=== PATIENT | female | born 1975 | race Caucasian/White ===

== ENCOUNTER 2019-04-09 09:08 | Emergency (ER) | payer OTHER ==
[2019-04-09 09:15] VITALS: BP 135/81; PULSE 115; TEMP 98; BMI 37.8
[2019-04-09] MEDS ORDERED: FLUCONAZOLE 150 MG TABLET PO ONE (09:35)
[2019-04-09] MEDS ORDERED: FLUCONAZOLE 100 MG TABLET (UD) ONE (09:39)
--- NOTE | 2019-04-09 10:07 | PDOC ---
History of Present Illness - General Chief Complaint: Vaginal Sxs Stated Complaint: VAGINAL SXS Time Seen by Provider: 04/09/19 09:23 History Source: Patient Exam Limitations: No Limitations Past History - Travel Traveled outside of the country in the last 30 days: No Close contact w/someone who was outside of country & ill: No - Past Medical History Allergies/Adverse Reactions: Allergies Allergy/AdvReac Type Severity Reaction Status Date / Time Penicillins Allergy Verified 04/09/19 09:14 Home Medications: Ambulatory Orders Ciprofloxacin [Cipro -] 250 mg PO BID #20 tablet 10/23/14 Methylergonovine Maleate [Methergine -] 0.2 mg PO TID #9 tablet 10/23/14 Pnv with Ca,No.71/Iron/FA [Prenaplus Tablet] 1 each PO DAILY 10/23/14 Fluconazole [Diflucan] 150 mg PO ONCE 1 Days #1 tablet 04/09/19 Nystatin/Triamcinolone Top Oin [Mycolog II -] 1 applic TP BID 7 Days #30 gm 05/28 Anemia: Yes COPD: No - Immunization History Immunization Up to Date: Yes - Psycho Social/Smoking Cessation Hx Smoking History: Never smoked Have you smoked in the past 12 months: No Substance Use Type: None Abd/GI Specific PMHX - Complaint Specific PMHX Colitis: No Review of Systems - Review of Systems Constitutional: No: Chills, Fever ABD/GI: No: Abdominal Distended, Abd. Pain w/ defecation, Diarrhea, Nausea, Vomiting, Abdominal cramping : Yes: Burning, Dysuria, Discharge. No: Frequency, Flank Pain, Hematuria, Pain, Urgency Musculoskeletal: No: Back Pain *Physical Exam - Vital Signs Last Vital Signs Temp Pulse Resp BP Pulse Ox 98 F 115 H 18 135/81 99 04/09/19 09:12 04/09/19 09:12 04/09/19 09:12 04/09/19 09:12 04/09/19 09:12 - Physical Exam General Appearance: Yes: Nourished Respiratory/Chest: positive: Lungs Clear, Normal Breath Sounds Cardiovascular: positive: Regular Rhythm, Regular Rate, S1, S2 Female Pelvic Exam: positive: discharge (white discharge), other (inflamed labia majoria, no CMT or adnexal tenderness). 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 Patient also noticed some white vaginal discharge. She denies any pelvic pain, fever, chills, or STI concerns. Examination consist of candidiasis, UA was negative Rx with Diflucan and triamcinolone sent to the pharmacy. vaginal culture sent Discharge - Discharge Information Problems reviewed: Yes Clinical Impression/Diagnosis: Yeast infection of the vagina Condition: Stable Disposition: HOME - Admission No - Additional Discharge Information Plan of Treatment: you was treated for yeast infection today. Your urine shows no infection for urinary tract infection Please take medication as prescribed in the pharmacy. 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
[2019-04-09 10:17] LABS: PH,URINE 6.5 (5.0-8.0); URINE APPEARANCE CLEAR; URINE BILIRUBIN NEGATIVE (NEGATIVE); URINE COLOR YELLOW; URINE GLUCOSE (UA) NEGATIVE (NEGATIVE); URINE KETONE NEGATIVE (NEGATIVE); URINE LEUK ESTERASE NEGATIVE (NEGATIVE); URINE NITRITE NEGATIVE (NEGATIVE); URINE PROTEIN NEGATIVE (NEGATIVE); URINE UROBILINOGEN 0.2 mg/dL (0.2-1.0)
== END 2019-04-09 11:00 | disposition home or self-care (01) ==
LOC: JER 09:08 → JERFT 09:08
DX: B37.3 Candidiasis of vulva and vagina (principal); Z88.0 Allergy status to penicillin; D64.9 Anemia, unspecified
CPT/HCPCS: 36415; 81003; 84703; 87086; 87491; 87591; 99282-25

== ENCOUNTER 2019-11-06 14:29 | Emergency (ER) | payer OTHER ==
[2019-11-06 14:35] VITALS: BP 125/71; PULSE 85; TEMP 98.3; BMI 36.6
--- NOTE | 2019-11-06 14:36 | PDOC ---
Rapid Medical Evaluation Time Seen by Provider: 11/06/19 14:33 Medical Evaluation: Allergies Allergy/AdvReac Type Severity Reaction Status Date / Time Penicillins Allergy Verified 11/06/19 14:32 11/06/19 14:33 CC: swelling near left jawline since yesterday, no other complaints including dry mouth . did mention llq tooth discomfort a few days ago Exam: mild to no edema noted to left mandible region, no tenderness, vss Plan: none Discharge Disposition - Diagnosis Facial swelling - Referrals - Patient Instructions - Post Discharge Activity
--- NOTE | 2019-11-06 16:05 | PDOC ---
History of Present Illness - General Chief Complaint: Head/Neck problem Stated Complaint: LT SIDE FACE SWOLLEN Time Seen by Provider: 11/06/19 14:33 History Source: Patient Exam Limitations: No Limitations - History of Present Illness Initial Comments: 11/06/19 15:30 44 yo female pmh GERD, iron deficiency anemia and pre-diabetes presents to the ED for 1 day of left face numbness. Pt states around 9 pm yesterday night she had numbness extending from her left jaw to the left side of her mouth and today noted intermittent numbness in the left upper ext. Pt denies similar symptoms in the past, PIKE, changes in vision, temporal pain, weakness on 1 side of her body, N/V/F/C, recent travel or sick contacts. Denies CP, SOB, abdominal pain, changes in bowel or bladder habits Past History - Medical History Allergies/Adverse Reactions: Allergies Allergy/AdvReac Type Severity Reaction Status Date / Time Penicillins Allergy Verified 11/06/19 14:32 Home Medications: Ambulatory Orders Ferrous Sulfate [Iron] 325 mg PO BID 11/06/19 Anemia: Yes COPD: No Diabetes: Yes - Immunization History Immunization Up to Date: Yes - Psycho-Social/Smoking History Smoking History: Never smoked Have you smoked in the past 12 months: No - Substance Abuse Hx (Audit-C & DAST Scrn) How often the patient has a drink containing alcohol: Never Score: In Men: 4 or > Positive; In Women: 3 or > Positive: 0 Screen Result (Pos requires Nsg. Audit-10AR): Negative In the last yr the pt used illegal drug/Rx for NonMed reason: No Score: Yes response is considered Positive: 0 Screen Result (Positive result requires Nsg. DAST-10): Negative Review of Systems - Review of Systems Constitutional: Yes: Symptoms Reported HEENTM: Yes: Symptoms Reported Respiratory: Yes: Symptoms reported Cardiac (ROS): Yes: Symptoms Reported ABD/GI: Yes: Symptoms Reported : Yes: Symptoms Reported Musculoskeletal: Yes: Symptoms Reported Integumentary: Yes: Symptoms Reported Neurological: Yes: Symptoms reported *Physical Exam - Vital Signs Last Vital Signs Temp Pulse Resp BP Pulse Ox 98.3 F 85 20 125/71 100 11/06/19 14:33 11/06/19 14:33 11/06/19 14:33 11/06/19 14:33 11/06/19 14:33 - Physical Exam General Appearance: Yes: Nourished, Appropriately Dressed. No: Apparent Distress HEENT: positive: EOMI, MYA, TMs Normal, Pharynx Normal Neck: positive: Supple. negative: Carotid bruit Respiratory/Chest: positive: Lungs Clear, Normal Breath Sounds. negative: Respiratory Distress, Accessory Muscle Use, Rapid RR, Decreased Breath Sounds, Crackles, Rales, Rhonchi, Stridor, Wheezing Cardiovascular: positive: Regular Rhythm, Regular Rate, S1, S2. negative: Edema, JVD, Murmur Vascular Pulses: Dorsalis-Pedis (R): 4+, Doralis-Pedis (L): 4+ Gastrointestinal/Abdominal: positive: Flat, Soft. negative: Pulsatile Mass, P rotuberent, Distended, Guarding, Rebound, Tenderness Musculoskeletal: negative: CVA Tenderness Extremity: positive: Normal Capillary Refill, Normal Inspection, Normal Range of Motion Integumentary: positive: Normal Color, Dry, Warm Neurologic: positive: workforce planning analyst II-XII NML intact, Fully Oriented, Alert, Normal Mood/Affect, Normal Response, Motor Strength 5/5. negative: Numbness, Sensory Deficit, Confused, Disoriented ED Treatment Course - LABORATORY CBC & Chemistry Diagram: 11/06/19 15:45 11/06/19 15:45 Medical Decision Making - Medical Decision Making 11/06/19 18:05 44 yo female pmh GERD, iron deficiency anemia and pre-diabetes presents to the ED for 1 day of left face numbness. Pt states around 9 pm yesterday night she had numbness extending from her left jaw to the left side of her mouth and today noted intermittent numbness in the left upper ext. Pt denies similar symptoms in the past, PIKE, changes in vision, temporal pain, weakness on 1 side of her body, N/V/F/C, recent travel or sick contacts. Denies CP, SOB, abdominal pain, changes in bowel or bladder habits vitals WNL Pt appears comfortable, NAD Can not illicit pain on palpation of tooth, states theres is no pain, only associated numbness in the face. No erythema, abscess or drainage, no signs of infection in the mouth Along with Numbness in the left face and left upper ext numbness, head CT done to r/o stroke Discussed case with Dr. Danielson, states if head CT is neg, pt is safe for DC home and can call the office to make an appointment for outpatient neuro follow up 11/06/19 18:[address] neg for acute intracranial pathology Pt feels well and states she will follow up with neurology, her PCP and her Dentist this week Pt safe for DC home Discharge - Discharge Information Problems reviewed: Yes Clinical Impression/Diagnosis: Facial swelling, Numbness Condition: Stable Disposition: HOME - Admission No - Follow up/Referral Referrals: Danny Tavares [Primary Care Provider] - Toy Danielson MD [Staff Physician] - - Patient Discharge Instructions Patient Printed Discharge Instructions: DI for Numbness/tingling Additional Instructions: Please see your Primary Doctor within the next 48 hours. Call the Neurologist, Dr. Danielson in the morning to schedule an appointment this week. Return to the ER for new or concerning symptoms. Thank you - Post Discharge Activity
[2019-11-06 16:25] LABS: BASO % 0.6 % (0-2.0); EOS % 0.5 % (0-4.5); HEMOGLOBIN 10.9 GM/dL (10.7-15.3); MCH 25.7 pg (25.7-33.7); MCHC 31.2 g/dl (32.0-36.0); MEAN CELL VOLUME 82.4 fl (80-96); MEAN PLT VOLUME 8.5 fl (7.5-11.1); MONO % 6.6 % (3.8-10.2); NEUT % 67.3 % (42.8-82.8); PLATELET COUNT 361 K/MM3 (134-434); RBC 4.25 M/mm3 (3.60-5.2); RDW 20.1 % (11.6-15.6); WHITE BLOOD COUNT 7.2 K/mm3 (4.0-10.0)
[2019-11-06 17:00] LABS: ALBUMIN 3.8 g/dl (3.4-5.0); BILIRUBIN,TOTAL 0.3 mg/dL (0.2-1); BLOOD UREA NITROGEN 9.9 mg/dL (7-18); CALCIUM 9.3 mg/dL (8.5-10.1); CREATININE 0.9 mg/dL (0.55-1.3); POTASSIUM 3.8 mmol/L (3.5-5.1); TOT PROT 6.8 g/dl (6.4-8.2)
--- NOTE | 2019-11-06 18:37 | PDOC ---
Attending Attestation - Resident Resident Name: BridgerNir pringle - ED Attending Attestation I have performed the following: I have examined & evaluated the patient, The case was reviewed & discussed with the resident, I agree w/resident's findings & plan, Exceptions are as noted - HPI HPI: 11/06/19 18:35 44 years old past medical history significant for anemia presents to the emergency department with left check intermittent numbness Does complain of some tooth discomfort but no evidence of active infection no fever chills chest pain shortness of breath nausea vomiting diarrhea symptoms are mild intermittent come and go no clear exacerbating or alleviating factors. 11/21/19 07:45 - Physicial Exam PE: 11/06/19 18:36 Vitals: Triage Vital signs reviewed General Appearance: No acute distress, well nourished well developed, Head: Atraumatic, Eyes: Pupils equal reactive round, extraocular movement intact Ears: TM's normal bilaterally; Neck: Supple; no Nucal rigidity Chest Wall: Nontender Cardiac: Regular rate and rhythym, no murmurs, no rubs, no gallops, Lungs: Clear to auscultation bilateral, good air movement bilaterally, Abdomen: Soft, non distended, normal bowel sounds, non tender to palpation Extremities: Full range of motion to all extremities, no cyanosis, clubbing, or edema Skin: Warm and dry, no rashes or lesions, no rash, no petechiae Neuro: AOX3; cranial Nerves 2-12 grossly intact, strength intact to all extremities, sensation intact to all extremities, gait normal Psych: Normal mood, normal affect - Medical Decision Making 11/06/19 18:36 44 years old with intermittent numbness to cheek and arm at this time no focal findings on examination however given symptomatology will CT labs observe and reassess CT with no acute pathology Case discussed with neurology will follow-up as an outpatient very low risk based on ABCD 2 risk stratification score Findings, need for follow-up and strict return instructions discussed with patient. NIH Stroke Scale - Last Known Well Date/Time & Onset Date Last Known Well: 11/03/19 - Initial Evaluation Level of consciousness: Alert Ask patient the month and their age: Answers both correctly Ask patient to open & close eyes; make fist and let go: Obeys both correctly Best gaze (horizontal eye movement): Normal Visual field testing: No visual field loss Facial paresis (Show teeth/raise eyebrows/close eyes tight): Normal symmetrical movement Motor Function: Left Arm: Normal Motor Function: Right Arm: Normal (extends arm 90 (or 45) degrees for 10 seconds without drift Motor Function: Left Leg: Normal (extends leg 30 degrees for 5 seconds without drift) Motor Function: Right Leg: Normal (extends leg 30 degrees for 5 seconds without drift) Limb Ataxia: No ataxia Sensory(Use pinprick test arms,legs,trunk,face/side to side): Normal Best language (Describe picture, name items, read sentences): No Aphasia Dysarthria (read several words): Normal articulation Extinction and Inattention: No abnormality - Total Score NIH Stroke Scale Score: 0 Discharge - Discharge Information Problems reviewed: Yes Clinical Impression/Diagnosis: Facial swelling, Numbness Condition: Stable Disposition: HOME - Follow up/Referral Referrals: Toy Danielson MD [Staff Physician] - Danny Tavares [Primary Care Provider] - - Patient Discharge Instructions Patient Printed Discharge Instructions: DI for Numbness/tingling Additional Instructions: Please see your Primary Doctor within the next 48 hours. Call the Neurologist, Dr. Danielson in the morning to schedule an appointment this week. Return to the ER for new or concerning symptoms. Thank you - Post Discharge Activity
== END 2019-11-06 18:46 | disposition home or self-care (01) ==
LOC: JER 14:29
DX: R22.0 Localized swelling, mass and lump, head (principal); R20.2 Paresthesia of skin
CPT/HCPCS: 36415; 70450-TC; 80053; 85025; 99284-25

== ENCOUNTER 2020-01-16 17:30 | Emergency (ER) | payer OTHER ==
[2020-01-16 17:45] VITALS: BP 117/71; PULSE 94; TEMP 98.8; BMI 38.0
[2020-01-16] MEDS ORDERED: ASPIRIN 81 MG CHEWABLE TABLETS PO ONE (17:47)
--- NOTE | 2020-01-16 17:47 | PDOC ---
Rapid Medical Evaluation Chief Complaint: Chest Pain Time Seen by Provider: 01/16/20 17:44 Medical Evaluation: Allergies Allergy/AdvReac Type Severity Reaction Status Date / Time Penicillins Allergy Verified 01/16/20 17:42 01/16/20 17:45 I have performed a brief in-person evaluation of this patient. The patient presents with a chief complaint of: h/o pre-diabetes and anemia sent in by PCP Dr. Villatoro due to complains of chest discomfort a week ago. pt report she f/u with PCP office today about the complains and was advised by PCP to come ED for evaluation. report no work-up was done at PCP office. report no chest pain now. Pertinent physical exam findings: heart RRR in NAD. lungs CTAB I have ordered the following: ekg, cbc, trop The patient will proceed to the ED for further evaluation. Discharge Disposition - Diagnosis Chest discomfort - Discharge Dispostion Condition at time of disposition: Stable - Referrals - Patient Instructions - Post Discharge Activity
[2020-01-16 21:02] LABS: BASO % 0.3 % (0-2.0); HEMATOCRIT 34.5 % (32.4-45.2); LYMPH % 30.4 % (8-40); MCH 26.1 pg (25.7-33.7); MCHC 31.9 g/dl (32.0-36.0); MEAN CELL VOLUME 81.8 fl (80-96); MEAN PLT VOLUME 8.2 fl (7.5-11.1); MONO % 5.5 % (3.8-10.2); NEUT % 62.8 % (42.8-82.8); PLATELET COUNT 357 K/MM3 (134-434); RBC 4.21 M/mm3 (3.60-5.2); RDW 16.8 % (11.6-15.6); WHITE BLOOD COUNT 8.2 K/mm3 (4.0-10.0)
[2020-01-16 21:34] LABS: ALBUMIN 3.6 g/dl (3.4-5.0); ALK PHOS 66 U/L (45-117); ANION GAP 6 MMOL/L (8-16); BILIRUBIN,TOTAL 0.2 mg/dL (0.2-1); BLOOD UREA NITROGEN 9.6 mg/dL (7-18); CALCIUM 9.1 mg/dL (8.5-10.1); CHLORIDE 108 mmol/L (98-107); CO2 26 mmol/L (21-32); CREATININE 0.9 mg/dL (0.55-1.3); GLUCOSE,RANDOM 95 mg/dL (74-106); MAGNESIUM 2.3 mg/dL (1.8-2.4); POTASSIUM 3.7 mmol/L (3.5-5.1); SGOT/AST 14 U/L (15-37); SGPT/ALT 18 U/L (13-61); SODIUM 139 mmol/L (136-145); TOT PROT 7.2 g/dl (6.4-8.2)
--- NOTE | 2020-01-16 21:45 | PDOC ---
History of Present Illness - General Chief Complaint: Chest Pain Stated Complaint: SENT BY DR Faustin Seen by Provider: 01/16/20 17:44 History Source: Patient - History of Present Illness Initial Comments: 01/16/20 22:03 44-year-old female complaining of left-sided chest pain 1 week ago while she was driving patient reports that she felt faint with a squeeze to the left-sided chest. Patient reports light chest pain worse on palpation today denies dizziness, diaphoresis, headache, nausea, vomiting today. Patient reports that she has a cardiology appointment in 2 days Patient has a past medical history of anemia and prediabetes. Past History - Medical History Allergies/Adverse Reactions: Allergies Allergy/AdvReac Type Severity Reaction Status Date / Time Penicillins Allergy Verified 01/16/20 17:42 Home Medications: Ambulatory Orders NK [No Known Home Medication] 10/14/14 Ferrous Sulfate [Iron] 325 mg PO BID 11/06/19 Anemia: Yes COPD: No Diabetes: Yes GI Disorders: Yes (GERD) - Reproductive History Is Patient Now?: No (#): 4 Para: 3 - Immunization History Immunization Up to Date: Yes - Psycho-Social/Smoking History Smoking History: Never smoked Have you smoked in the past 12 months: No - Substance Abuse Hx (Audit-C & DAST Scrn) How often the patient has a drink containing alcohol: Never Score: In Men: 4 or > Positive; In Women: 3 or > Positive: 0 Screen Result (Pos requires Nsg. Audit-10AR): Negative In the last yr the pt used illegal drug/Rx for NonMed reason: No Score: Yes response is considered Positive: 0 Screen Result (Positive result requires Nsg. DAST-10): Negative Review of Systems - Review of Systems Able to Perform ROS?: Yes Is the patient limited Bermudian proficient: No Constitutional: No: Symptoms Reported, See HPI, Chills, Diaphoresis, Fever, Loss of Appetite, Malaise, Night Sweats, Weakness, Weight Stable, Unintentional Wgt. Loss, Unexplained wgt Loss, Other Cardiac (ROS): Yes: Chest Pain, Lightheadedness. No: Symptoms Reported, See HPI, Edema, Irregular Heart Rate, Palpitations, Syncope, Chest Tightness, Other ABD/GI: No: Symptoms Reported, See HPI, Abdominal Distended, Abd. Pain w/ defecation, Blood Streaked Bowels, Constipated, Diarrhea, Difficulty Swallowing, Nausea, Poor Appetite, Poor Fluid Intake, Rectal Bleeding, Vomiting, Indigestion, Abdominal cramping, Tarry Stools, Other *Physical Exam - Vital Signs Last Vital Signs Temp Pulse Resp BP Pulse Ox 98.8 F 94 H 20 117/71 98 01/16/20 17:42 01/16/20 17:42 01/16/20 17:42 01/16/20 17:42 01/16/20 17:42 - Physical Exam General Appearance: Yes: Appropriately Dressed Respiratory/Chest: positive: Chest Tender, Lungs Clear, Normal Breath Sounds Cardiovascular: positive: Regular Rhythm, Regular Rate Gastrointestinal/Abdominal: positive: Normal Bowel Sounds, Soft. negative: Tender Extremity: positive: Normal Capillary Refill Integumentary: positive: Normal Color, Dry, Warm Neurologic: positive: Fully Oriented, Alert, Normal Mood/Affect ED Treatment Course - LABORATORY CBC & Chemistry Diagram: 01/16/20 20:30 01/16/20 20:30 - ADDITIONAL ORDERS Additional order review: Laboratory Results 01/16/20 20:30 Sodium 139 Potassium 3.7 Chloride 108 H Carbon Dioxide 26 Anion Gap 6 L BUN 9.6 Creatinine 0.9 Est GFR (CKD-EPI)AfAm 89.50 Est GFR (CKD-EPI)NonAf 77.22 Random Glucose 95 Calcium 9.1 Magnesium 2.3 Total Bilirubin 0.2 AST 14 L ALT 18 Alkaline Phosphatase 66 Creatine Kinase 81 Troponin I < 0.02 Total Protein 7.2 Albumin 3.6 01/16/20 20:30 RBC 4.21 MCV 81.8 MCHC 31.9 L RDW 16.8 H MPV 8.2 Neutrophils % 62.8 Lymphocytes % 30.4 D Monocytes % 5.5 Eosinophils % 1.0 D Basophils % 0.3 - Medications Given in the ED: ED Medications Discontinued Medications Generic Name Dose Route Start Last Admin Trade Name Freq PRN Reason Stop Dose Admin Aspirin 162 mg 01/16/20 17:47 01/16/20 20:22 Asa - PO 01/16/20 17:48 Not Given ONCE ONE Medical Decision Making - Medical Decision Making 01/17/20 05:54 A: chest pain P: labs EKG chest xray Discharge - Discharge Information Problems reviewed: Yes Clinical Impression/Diagnosis: Chest discomfort Chest pain Qualifiers: Chest pain type: unspecified Qualified Code(s): R07.9 - Chest pain, unspecified Condition: Stable Disposition: HOME - Follow up/Referral Referrals: Linda Villatoro [Primary Care Provider] - Call tomorrow - Patient Discharge Instructions Patient Printed Discharge Instructions: DI for Atypical Chest Pain Additional Instructions: 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 Return to the emergency room for any worsening symptoms - Post Discharge Activity Work/Back to School Note: Back to Work
--- NOTE | 2020-01-17 12:58 | EKG ---
Test Reason : Blood Pressure : / mmHG Vent. Rate : 081 BPM Atrial Rate : 081 BPM P-R Int : 106 ms QRS Dur : 078 ms QT Int : 384 ms P-R-T Axes : 050 029 018 degrees QTc Int : 446 ms SINUS RHYTHM WITH SHORT ND OTHERWISE NORMAL ECG NO PREVIOUS ECGS AVAILABLE Confirmed by MD CHANELL, JOSE ([id number]) on 01/17/2020 12:57:35 PM Referred By: Confirmed By:JOSE LUA MD
== END 2020-01-16 22:35 | disposition home or self-care (01) ==
LOC: JER 17:30
DX: R07.9 Chest pain, unspecified (principal)
CPT/HCPCS: 36415; 71046-TC-FY; 80053; 82550; 83735; 84484; 85025; 93005; 93010; 99285-25

== ENCOUNTER 2023-03-28 17:11 | Emergency (ER) | payer OTHER ==
[2023-03-28 17:54] VITALS: BP 130/73; PULSE 78; RESP 18; TEMP 99; BMI 38.9
[2023-03-28] MEDS ORDERED: SODIUM CHLORIDE 1,000 ML IV ONE (18:28)
[2023-03-28 19:08] LABS: INR 0.97 (0.83-1.09); PROTHROMBIN TIME (PATIENT) 11.2 SEC (9.7-13.0)
[2023-03-28 19:17] LABS: HCG,QUALITATIVE URINE Negative
[2023-03-28 19:19] LABS: HEMATOCRIT 34.2 % (32.4-45.2); HEMOGLOBIN 10.7 G/dL (10.7-15.3); MCH 24.6 pg (25.7-33.7); MCHC 31.2 g/dl (32.0-36.0); MEAN CELL VOLUME 78.9 fl (80-96); MEAN PLT VOLUME 8.9 fl (7.5-11.1); PLATELET COUNT 428.1 10^3/uL (134-434); RBC 4.34 10^6/uL (3.60-5.2); RDW 20.8 % (11.6-15.6); WHITE BLOOD COUNT 9.3 10^3/uL (4.0-10.8)
[2023-03-28 19:23] LABS: ALBUMIN 4.1 g/dl (3.4-5.0); BILIRUBIN,TOTAL 0.2 mg/dl (0.2-1); CALCIUM 9.2 mg/dl (8.5-10.1); CREATININE 0.9 mg/dl (0.6-1.3); POTASSIUM 3.8 mmol/L (3.5-5.1); TOT PROT 6.5 g/dl (6.4-8.2)
[2023-03-28 20:37] LABS: EPITHELIAL CELLS 0-5 /hpf
[2023-03-28 21:58] LABS: ANISOCYTOSIS 2+
[2023-03-29 08:34] LABS: PLATELET ESTIMATE ADEQUATE
== END 2023-03-28 20:37 | disposition home or self-care (01) ==
LOC: FER 17:11
PROC: 3E0337Z Introduction of Electrolytic and Water Balance Substance into Peripheral Vein, Percutaneous Approach (ICD-10-PCS; principal; 2023-03-28)
DX: R42 Dizziness and giddiness (principal); N92.0 Excessive and frequent menstruation with regular cycle; N83.202 Unspecified ovarian cyst, left side
CPT/HCPCS: 36415; 76830-TC; 80053; 81003; 81015; 84703; 85027; 85610; 86850; 86900; 86901; 99284-25

== ENCOUNTER 2024-10-25 07:09 | Emergency (ER) | payer OTHER ==
[2024-10-25 07:19] VITALS: TEMP 98.2; BMI 39.3
[2024-10-25 07:52] LABS: ABSOLUTE IMMATURE GRANULOCYTES 0.08 x10^3/uL (0.0-0.031); BASOPHILS # 0.04 x10^3/uL (0.01-0.08); EOSINOPHIL % 1.7 % (0.7-5.8); EOSINOPHILS # 0.14 x10^3/uL (0.04-0.36); HEMATOCRIT 30.5 % (34.1-44.9); HEMOGLOBIN 9.3 g/dL (11.2-15.7); MCHC 30.5 g/dl (32.2-35.5); MEAN CELL VOLUME 86.6 fl (79.4-94.8); MEAN PLT VOLUME 9.6 fl (9.4-12.3); MONOCYTE # 0.54 x10^3/uL (0.24-0.86); MONOCYTE % 6.7 % (4.7-12.5); PLATELET COUNT 376 x10^3/uL (182-369); RDW 18.8 % (12.2-17.1)
[2024-10-25 08:01] LABS: HCG,QUALITATIVE URINE Negative
[2024-10-25 08:07] LABS: ALBUMIN 4.1 g/dl (3.4-5.0); BILIRUBIN,TOTAL 0.3 mg/dl (0.2-1); CALCIUM 8.9 mg/dl (8.5-10.1); CREATININE 0.8 mg/dl (0.6-1.3); POTASSIUM 3.7 mmol/L (3.5-5.1); TOT PROT 6.4 g/dl (6.4-8.2)
[2024-10-25 10:06] VITALS: BP 116/57; PULSE 86; RESP 18
[2024-10-25 16:08] LABS: HIV INTERPRETATION NEGATIVE (NEGATIVE)
[2024-10-25 16:09] LABS: HCV DIAGNOSTIC IN-HOUSE W/RFLX NON-REACTIVE (NONREACTIVE)
== END 2024-10-25 10:07 | disposition home or self-care (01) ==
LOC: FER 07:09
DX: N92.6 Irregular menstruation, unspecified (principal)
CPT/HCPCS: 36415; 76830-TC; 80053; 81003; 81015; 84443; 84703; 85025; 86803; 87389; 99284-25